=== PATIENT | female | born 2000 | race African-American/Black ===

== ENCOUNTER 2019-01-31 17:27 | Emergency (ER) | payer MEDICAID, SELFPAY ==
[2019-01-31 17:30] VITALS: BP 160/90; PULSE 79; RESP 16; TEMP 36.4; O2SAT 100; BMI 40.3
--- NOTE | 2019-01-31 18:51 | ED.DCSUM_ITS ---
History of Present Illness Chief Complaint: Bite Informant: Patient Narrative: Patient states she was bit in the left thigh by a dog 2 weeks ago, the wound is healed and is not bothering her anymore but the warden and animal control keep telling her to come to the emergency department for rabies vaccines. They were not able to find the dog even know when it bit her it was being playful and being walked by 2 people. Past Medical History - Allergies and Home Meds Allergies/Adverse Reactions: Allergies No Known Allergies Allergy (Verified 01/31/19 17:29) Primary Care Physician: Care Physician,No Primary [Primary Care Provider] - Past Medical History: None Surgical History: no surgical history Lives: Alone Smoking Status: Never smoker Review of Systems General: Denies: Chills, Fever, Sweats Eyes: Denies: Visual changes - bilaterally, Diplopia ENT: Denies: Rhinorrhea, Sore throat Cardiovascular: Denies: Chest pain, Palpitations Respiratory: Denies: Dyspnea, Cough, Dyspnea on exertion Gastrointestinal: Denies: Abdominal pain, Nausea, Vomiting, Diarrhea, Melena, Hematochezia Genitourinary: Denies: Dysuria, Hematuria, Frequency Musculoskeletal: Denies: Myalgias, Arthralgias, Neck pain, Back pain, Swelling, Extremity Pain Skin: Reports: Wounds - healed. Denies: Rash, Abscess Neurological: Denies: Headache, Weakness, Numbness Physical Exam Vital Signs/Narrative: Vital Signs Temp Pulse Resp BP Pulse Ox 01/31/19 17:30 97.5 F L 79 16 160/90 H 100 Inital Vital Signs reviewed: Yes General: Well nourished, Well developed, Obese, No Acute Distress Head: Normocephalic, Atraumatic Eyes: Perrl, EOMI ENT: Moist mucous membranes, No rhinorrhea Neck: Supple, Nontender Respiratory: No distress, Chest nontender Abdomen: Soft, Nontender, Nondistended, Normal bowel sounds Extremities: Nontender, No edema Skin: Normal color, No rash, Trauma - well-healed #2 small puncture wounds left anterior distal thigh; no tenderness, no erythema, no signs of infection. well- healed. Neurological: Alert, Oriented x3, Cranial nerves II-XII grossly intact, Normal Strength, Normal Sensation, Normal Gait Psychological: Normal affect, Normal Mood Diagnostic/Tx/Re-eval - Medical Decision Making . Discussed risks and benefits and very low chance of rabies, patient does indeed want the rabies vaccine. She was given the first 1 today as well as the rest of the calendar for which to return for them. Given that the bite is well- healed she has had no other symptoms, I do not think she needs rabies immunoglobulin therapy. I believe this bite is very low risk for containing rabies given the history. ED Disposition - Plan for ED Patient: Disposition: Home or Assisted Living Diagnosis: Dog bite of left thigh without complication Instructions: Vaccine Information: Rabies Referrals: Care Physician,No Primary [Primary Care Provider] - EMERGENCY PHYSICIAN [Provider Group] (On the following days: 02/03/19, 02/07/19, 02/14/19)
[2019-01-31] MEDS: Rabies Vaccine,Human Diploid 2.5 UNITS Vial IM (19:11)
[2019-01-31 19:58] VITALS: RESP 16
== END 2019-01-31 19:58 | disposition home or self-care (01) ==
PROVIDERS: Emergency Provider Emergency Medicine
DX: S71.132D Puncture wound without foreign body, left thigh, subsequent encounter (principal); W54.0XXD Bitten by dog, subsequent encounter; Z23 Encounter for immunization
CPT/HCPCS: 90675; 99282

== ENCOUNTER → 2019-02-03 19:59 | Outpatient (CLI) | payer MEDICAID, SELFPAY ==
[2019-01-31 17:30] VITALS: BMI 40.3
[2019-02-03 19:31] VITALS: BP 137/74; PULSE 102; RESP 16; TEMP 36.8; O2SAT 97; BMI 40.3
[2019-02-03] MEDS: Rabies Vaccine,Human Diploid 2.5 UNITS Vial IM (19:49)
[2019-02-03 19:55] VITALS: BMI 40.3
== END ==
DX: Z23 Encounter for immunization (principal)
CPT/HCPCS: 90675; 96372

== ENCOUNTER 2019-02-07 16:19 | Outpatient (CLI) | payer MEDICAID, SELFPAY ==
[2019-02-03 19:55] VITALS: BMI 40.3
[2019-02-07 16:50] VITALS: BP 127/81; PULSE 82; RESP 16; TEMP 36.4; O2SAT 97; BMI 34.4
[2019-02-07] MEDS: Rabies Vaccine,Human Diploid 2.5 UNITS Vial IM (16:50)
== END 2019-02-07 17:10 | disposition home or self-care (01) ==
LOC: ED 18:31
DX: Z23 Encounter for immunization (principal); Z20.3 Contact with and (suspected) exposure to rabies
CPT/HCPCS: 90675; 96372

== ENCOUNTER 2019-02-14 17:22 | Outpatient (CLI) | payer MEDICAID, SELFPAY ==
[2019-02-14 17:42] VITALS: BP 142/82; PULSE 81; RESP 17; TEMP 37.2; O2SAT 95; BMI 41.5
[2019-02-14] MEDS: Rabies Vaccine,Human Diploid 2.5 UNITS Vial IM (17:50)
== END 2019-02-14 17:58 | disposition home or self-care (01) ==
LOC: ED 18:17
PROVIDERS: Visit Provider Emergency Medicine
DX: Z23 Encounter for immunization (principal)
CPT/HCPCS: 90675; 96372